=== PATIENT | male | born 1975 | race Caucasian/White ===

== ENCOUNTER 2021-11-02 10:31 | Day surgery (SDC) | payer OTHER ==
[~2021-11-02] VITALS: Ht 182.9 cm; Wt 97.1 kg
[~2021-11-02 10:31] MED LIST: VIC PO
[2021-11-02] MEDS ORDERED: BUPIVACAINE-MPF/EPI 0.25% 10 ML VIAL INJ ONE (12:25)
[2021-11-02] MEDS ORDERED: LIDOCAINE MPF 1% 0 ML ONE (12:25)
[2021-11-02] MEDS ORDERED: LIDOCAINE 1% 500 MG/50 ML VIAL ONE (12:26)
[2021-11-02] MEDS ORDERED: SEVOFLURANE 250 ML BTL INH ONE (12:49)
[2021-11-02] MEDS ORDERED: fentaNYL citrate 0.05 MG/ML VIAL ONE (12:51)
[2021-11-02] MEDS ORDERED: ePHEDrine 50 MG/ML VIAL ONE (13:24)
[2021-11-02] MEDS ORDERED: PROPOFOL 200 MG/20 ML VIAL IV ONE ×2 (13:24)
[2021-11-02] MEDS ORDERED: SUCCINYLCHOLINE CHLORIDE 200 MG/10 ML VIAL IVP ONE (13:25)
[2021-11-02] MEDS ORDERED: KETOROLAC 30 MG/ML VIAL ONE (13:34)
[2021-11-02] MEDS ORDERED: ONDANSETRON 4 MG/2 ML VIAL ONE (13:34)
[2021-11-02] MEDS ORDERED: LACTATED RINGERS 1,000 ML IV SCH (14:05)
[2021-11-02] MEDS ORDERED: METOCLOPRAMIDE 10 MG/2 ML INJ VIAL IVP PRN (14:06)
[2021-11-02] MEDS ORDERED: hydrALAZINE 20 MG/ML VIAL IVP PRN (14:07)
[2021-11-02] MEDS ORDERED: LABETALOL 20 MG/4 ML VIAL IVP PRN (14:07)
[2021-11-02] MEDS: HYDROmorphone 1 MG/ML AMP IVP PRN ×4 (14:36→15:06)
[2021-11-02] MEDS ORDERED: HYDROmorphone PFS 2 MG/ML SYR ONE (14:38)
== END 2021-11-02 16:30 | disposition home or self-care (01) ==
LOC: MDS 10:31 → MMU 10:31 → MDS 15:37
PROVIDERS: ATTEND Surgery
DX: K64.8 Other hemorrhoids (principal); K21.9 Gastro-esophageal reflux disease without esophagitis; Z98.84 Bariatric surgery status; Z79.899 Other long term (current) drug therapy; Z20.822 Contact with and (suspected) exposure to COVID-19
CPT/HCPCS: 46260; 71045; 87426; J0330; J1170; J1885; J2001; J2405; J2704; J3010; J3490; 88304